=== PATIENT | male | born 1960 | race Caucasian/White ===

== ENCOUNTER 2020-03-29 19:12 | Emergency (ER) | payer OTHER ==
[~2020-03-29] VITALS: Ht 175.3 cm; Wt 80.0 kg
[2020-03-29] MEDS ORDERED: MORPHINE SULFATE 4 MG/ML, 1ML IVPush PRN (19:30)
[2020-03-29] MEDS ORDERED: SODIUM CHLORIDE FLUSH 10ML SYR IVF ONE (19:30)
[2020-03-29] MEDS ORDERED: MORPHINE SULFATE 4 MG/ML, 1ML ONE (19:32)
--- NOTE | 2020-03-29 19:40 | NUR ---
LATE ENTRY: PT STATES HE TRIPPED OVER AN ANKLE HEIGHT CHAIN, LANDED ON BOTH HANDS AND NOW LEFT ELBOW HURTS EXTREMELY BAD. PT HIT FACE ON GROUND DENIES LOC. PT WOUNDS DRESSED. LAW TO BS, GROSS NEURO AND CMS INTACT. WCTM PLACED ON BP/SPO2 MONITORING.
[2020-03-29] MEDS ORDERED: DIPH,PERTUSS(ACELL),TET VAC/PF 0.5 ML IM-VACC ONE ×2 (20:00→20:24)
--- NOTE | 2020-03-29 20:32 | NUR ---
PT STATES PAIN IS DECREASED, MEDICATED PER MAR, NAD, DENIES ADDITIONAL NEEDS AT THIS TIME. STATES HE HAS A RIDE HOME .WCTM.
[2020-03-29 20:54] VITALS: BP 115/74
--- NOTE | 2020-03-29 21:05 | NUR ---
Patient given discharge instructions and they have confirmed that they understand the instructions. Patient ambulatory with steady gait. NAD, DENIES ADDITIONAL QUESTIONS OR NEEDS.
== END 2020-03-29 21:07 | disposition home or self-care (01) ==
LOC: ED 21:00
DX: S52.132A Displaced fracture of neck of left radius, initial encounter for closed fracture (principal); W01.0XXA Fall on same level from slipping, tripping and stumbling without subsequent striking against object, initial encounter; Y93.89 Activity, other specified; Y92.009 Unspecified place in unspecified non-institutional (private) residence as the place of occurrence of the external cause; Y99.8 Other external cause status
CPT/HCPCS: 29125; 73080; 90471; 90715; 96372; 99284; J2270